=== PATIENT | female | born 1950 | race Caucasian/White ===

== ENCOUNTER 2022-11-27 13:39 | Day surgery (SDC) | payer MEDICARE, OTHER ==
[2022-11-27] MEDS ORDERED: BUPIVACAINE 0.5% VIAL IJ ONE (13:40)
[2022-11-27] MEDS ORDERED: Depo-Medrol 40 MG/ML IM ONE (13:40)
[2022-11-27] MEDS ORDERED: DIPRIVAN 200 MG/20 ML IV ONE (15:36)
[2022-11-27] MEDS ORDERED: Lactated Ringers 1,000 ML IV ONE (16:02)
--- NOTE | 2022-11-27 16:57 | XRAY ---
Indication: Bilateral SI joint injection. Intraoperative fluoroscopy provided for 19 seconds. 4 digital spot image submitted for interpretation demonstrates posterior needle tip projecting over the expected left and right SI joint. Correlate with intraoperative findings/report.
--- NOTE | 2022-11-27 16:59 | XRAY ---
19 seconds of fluoroscopy was used in surgery for bilateral SI joint injections.
== END 2022-11-27 16:05 | disposition home or self-care (01) ==
LOC: SDC-PAIN 13:39
PROVIDERS: ATTEND Psychiatry & Neurology Pain Medicine
DX: M46.1 Sacroiliitis, not elsewhere classified (principal)
CPT/HCPCS: 01992; 27096; 72202; 77002; 99100; G0260; J1030; J2704

== ENCOUNTER 2023-04-23 09:48 | Day surgery (SDC) | payer MEDICARE, OTHER ==
[2023-04-23] MEDS ORDERED: Depo-Medrol 40 MG/ML IM ONE (09:49)
[2023-04-23] MEDS ORDERED: BUPIVACAINE 0.5% VIAL IJ ONE (09:49)
[2023-04-23] MEDS ORDERED: DIPRIVAN 200 MG/20 ML IV ONE (12:34)
[2023-04-23] MEDS ORDERED: Xylocaine-Mpf 2% 5 Ml Vial ONE (12:35)
--- NOTE | 2023-04-23 15:08 | XRAY ---
Indication: Right SI joint injection. Intraoperative fluoroscopy provided for 9 seconds. 2 digital spot images submitted for interpretation demonstrates posterior needle tip projecting over the right SI joint. Correlate with intraoperative findings/report.
[2023-04-23] MEDS ORDERED: Lactated Ringers 1,000 ML IV ONE (16:48)
--- NOTE | 2023-04-23 16:57 | XRAY ---
9 seconds of fluoroscopy was used in surgery for a right SI injection.
== END 2023-04-23 13:10 | disposition home or self-care (01) ==
LOC: SDC-PAIN 09:48
PROVIDERS: ATTEND Psychiatry & Neurology Pain Medicine
DX: M46.1 Sacroiliitis, not elsewhere classified (principal)
CPT/HCPCS: 01992; 27096; 72170; 77002; 99100; G0260; J1030; J2704

== ENCOUNTER 2023-11-26 10:17 | Day surgery (SDC) | payer MEDICARE, OTHER ==
[2023-11-26] MEDS ORDERED: Xylocaine-Mpf 2% 5 Ml Vial IJ ONE (10:18)
[2023-11-26] MEDS ORDERED: Depo-Medrol 40 MG/ML IM ONE (10:18)
[2023-11-26] MEDS ORDERED: DIPRIVAN 200 MG/20 ML IV ONE (12:48)
[2023-11-26] MEDS ORDERED: Lactated Ringers 1,000 ML IV ONE (14:33)
--- NOTE | 2023-11-26 15:07 | XRAY ---
Indication: Bilateral L4-S1 MBB. Intraoperative fluoroscopy provided for 12 seconds. Single digital spot image submitted for interpretation demonstrates posterior needle tips projecting over the expected left and right L4-S1 nerve roots. Correlate with intraoperative findings/report.
--- NOTE | 2023-11-26 15:09 | XRAY ---
12 seconds of fluoroscopy was used in surgery for a bilateral L4-S1 MBB.
== END 2023-11-26 13:22 ==
LOC: SDC-PAIN 10:17
PROVIDERS: ATTEND Psychiatry & Neurology Pain Medicine
DX: M47.816 Spondylosis without myelopathy or radiculopathy, lumbar region (principal)
CPT/HCPCS: 64493; 64494; 72020; 77002; J2704

== ENCOUNTER → 2023-12-10 | Day surgery (SDC) | payer MEDICARE, OTHER ==
[~2023-12-10] MED LIST: BUPIVACAINE 0.5% VIAL IJ ONE; DIPRIVAN 200 MG/20 ML IV ONE; Depo-Medrol 40 MG/ML IM ONE; Lactated Ringers 1,000 ML IV ONE
--- NOTE | 2023-12-10 16:37 | XRAY ---
Indication: Right SI joint injection. Intraoperative fluoroscopy provided for 15 seconds. Single digital spot image submitted for interpretation demonstrates posterior needle tips projecting over the expected right SI joint. Small amount of contrast injected for needle tip placement. Correlate with intraoperative findings/report.
--- NOTE | 2023-12-10 20:09 | XRAY ---
15 seconds of fluoroscopy was used in surgery for a right sacroiliac joint injection.
== END ==
LOC: SDC-PAIN 12:07
PROVIDERS: ATTEND Psychiatry & Neurology Pain Medicine
DX: M46.1 Sacroiliitis, not elsewhere classified (principal)
CPT/HCPCS: 01992; 27096; 72170; 77002; 99100; G0260; J2704; Q9966

== ENCOUNTER 2024-01-14 12:15 | Day surgery (SDC) | payer MEDICARE, OTHER ==
[2024-01-14] MEDS ORDERED: Depo-Medrol 40 MG/ML IM ONE (12:16)
[2024-01-14] MEDS ORDERED: BUPIVACAINE 0.5% VIAL IJ ONE (12:16)
[2024-01-14] MEDS ORDERED: Lactated Ringers 1,000 ML IV ONE (14:37)
[2024-01-14] MEDS ORDERED: DIPRIVAN 200 MG/20 ML IV ONE (14:49)
--- NOTE | 2024-01-14 15:15 | XRAY ---
Indication: Bilateral L4-S1 MBB. Intraoperative fluoroscopy provided for 11 seconds. Single digital spot image submitted for interpretation demonstrates posterior needle tips projecting over the expected left and right L4-S1 nerve roots. Correlate with intraoperative findings/report.
--- NOTE | 2024-01-14 15:31 | XRAY ---
11 seconds of fluoroscopy was used in surgery for a bilateral L4-S1 MBB.
== END 2024-01-14 15:20 | disposition home or self-care (01) ==
LOC: SDC-PAIN 12:15
PROVIDERS: ATTEND Psychiatry & Neurology Pain Medicine
DX: M47.816 Spondylosis without myelopathy or radiculopathy, lumbar region (principal)
CPT/HCPCS: 64493; 64494; 72020; 77002; J2704

== ENCOUNTER 2024-04-28 08:47 | Day surgery (SDC) | payer MEDICARE, OTHER ==
[2024-04-28] MEDS ORDERED: propofoL IV ONE (10:37)
--- NOTE | 2024-04-28 11:42 | XRAY ---
Indication: Left L4-S1 RFA. Intraoperative fluoroscopy provided for 20 seconds. 5 digital spot images submitted for interpretation demonstrates posterior needle tips projecting over expected left L4-S1 nerve roots. Correlate with intraoperative findings/report.
--- NOTE | 2024-04-28 11:44 | XRAY ---
20 seconds of fluoroscopy was used in surgery for a left L4-S1 RFA.
== END 2024-04-28 11:13 | disposition home or self-care (01) ==
LOC: SDC-PAIN 08:47
PROVIDERS: ATTEND Psychiatry & Neurology Pain Medicine
DX: M47.817 Spondylosis without myelopathy or radiculopathy, lumbosacral region (principal)
CPT/HCPCS: 64635; 64636; 72100; 77002; 99100; J2704

== ENCOUNTER 2024-05-12 11:47 | Day surgery (SDC) | payer MEDICARE, OTHER ==
[2024-05-12] MEDS ORDERED: Depo-Medrol 40 MG/ML IM ONE (11:48)
[2024-05-12] MEDS ORDERED: BUPIVACAINE 0.5% VIAL IJ ONE (11:48)
[2024-05-12] MEDS ORDERED: LIDOCAINE HCL 1% AMPUL 5 ML IJ ONE (11:48)
[2024-05-12] MEDS ORDERED: propofoL IV ONE ×3 (13:52→14:11)
--- NOTE | 2024-05-12 14:55 | XRAY ---
Indication: Right L4-S1 RFA. Intraoperative fluoroscopy provided for 25 seconds. 4 digital spot images submitted for interpretation demonstrates posterior needle tips projecting expected right L4-S1 nerve roots. Correlate with intraoperative findings/report.
--- NOTE | 2024-05-12 14:59 | XRAY ---
25 seconds of fluoroscopy was used in surgery for a right L4-S1 RFA.
== END 2024-05-12 14:40 | disposition home or self-care (01) ==
LOC: SDC-PAIN 11:47
PROVIDERS: ATTEND Psychiatry & Neurology Pain Medicine
DX: M47.816 Spondylosis without myelopathy or radiculopathy, lumbar region (principal)
CPT/HCPCS: 64635; 64636; 72100; 77002; J2704